=== PATIENT | male | born 1975 | race Two or more races ===

== ENCOUNTER 2016-12-02 23:28 | Emergency (ER) | payer OTHER ==
[2016-12-02] MEDS ORDERED: fentaNYL 100 MCG/2 ML INJ ONE (23:29)
[2016-12-02] MEDS ORDERED: PROPOFOL 200 MG/20 ML VIAL ONE (23:30)
[2016-12-02] MEDS ORDERED: NS 1,000 ML IV ONE (23:50)
--- NOTE | 2016-12-03 | CPEKG ---
Heart Rate: 84 RR Interval: 714 P-R Interval: 160 QRSD Interval: 102 QT Interval: 392 QTC Interval: 464 P [place]: 47 QRS [place]: 35 T Wave [place]: 20 EKG Severity - ABNORMAL ECG - EKG Impression: SINUS RHYTHM EKG Impression: BORDERLINE INFERIOR Q WAVES EKG Impression: NONSPECIFIC T ABNORMALITIES, ANTERIOR LEADS Electronically Signed By: Jo Cobian 03-Dec-2016 07:08:29
[2016-12-03 00:18] LABS: % IMMATURE GRANULYOCYTES 0.4 % (0.0-1.1); ABSOLUTE IMMATURE GRANULOCYTES 0.03 10^3/uL (0.00-0.10); ADD DIFF? NO; ADD MORPH? NO; ADD SCAN? NO; ATYPICAL LYMPHOCYTE FLAG 10 (0-99); FRAGMENT RBC FLAG 0 (0-99); HEMATOCRIT 46.1 % (40.0-51.0); HEMOGLOBIN 15.4 g/dL (13.7-17.5); LEFT SHIFT FLG 0 (0-99); LIPEMIA HEMOLYSIS FLAG 80 (0-99); MEAN CELL HEMOGLOBIN 28.9 pg (27.9-34.1); MEAN CELL HEMOGLOBIN CONCENTR. 33.4 g/dL (32.4-36.7); MEAN CELL VOLUME 86.7 fL (81.5-99.8); MEAN PLATELET VOLUME 11.1 fL (8.7-11.7); PLATELET CLUMPS FLAG 0 (0-99); PLATELET COUNT 280 10^3/uL (150-400); RED BLOOD CELL COUNT 5.32 10^6/uL (4.40-6.38)
[2016-12-03 00:27] LABS: ANION GAP 14 mEq/L (8-16); CALCIUM 9.6 mg/dL (8.5-10.4); CARBON DIOXIDE 24 mEq/l (22-31); CHLORIDE 102 mEq/L (97-110); CREATININE 0.9 mg/dL (0.7-1.3); GLOMERULAR FILTRATION RATE > 60; GLUCOSE 119 mg/dL (70-100); POTASSIUM 3.2 mEq/L (3.5-5.2); SODIUM 140 mEq/L (134-144)
--- NOTE | 2016-12-03 00:31 | EDPHY ---
H & P Stated Complaint: lightheaded dizzy at work Time Seen by Provider: 12/03/16 00:07 HPI/ROS: HPI The patient presents with dizziness which began at about 9:00 p.m. tonight while he was on a conference call for work. It started slowly and got progressively worse. He describes as lightheadedness. This was associated with a dry mouth and tingling in his arms and legs. He did not lose consciousness. He did not have any chest pain, palpitations, shortness of breath. He has never felt this way before. He did eat some brownies at work with a label on them that said THC. He has never tried marijuana before. He ate these at 7:00 p.m.. REVIEW OF SYSTEMS Constitutional: No fever, no chills. Eyes: No discharge. ENT: No sore throat. Cardiovascular: No chest pain, no palpitations. Respiratory: No cough, no shortness of breath. Gastrointestinal: No abdominal pain, no vomiting. Genitourinary: No hematuria. Musculoskeletal: No back pain. Skin: No rashes. Neurological: No headache. PMHx: Healthy Soc Hx: Lives at home with his no drug use PHYSICAL General Appearance: Alert, no distress Eyes: Pupils equal and round no pallor or injection ENT, Mouth: Mucous membranes moist Respiratory: There are no retractions, lungs are clear to auscultation Cardiovascular: Regular rate and rhythm Gastrointestinal: Abdomen is soft and non-tender, no masses, bowel sounds normal Neurological: A&O, moves all extremities, sensation intact to light touch throughout arms and legs Skin: Warm and dry, no rashes Musculoskeletal: Neck is supple non tender Extremities: symmetrical, full range of motion Psychiatric: Patient is oriented X 3, there is no agitation Source: Patient Exam Limitations: No limitations - Personal History Current Tetanus/Diphtheria Vaccine: Yes Current Tetanus Diphtheria and Acellular Pertussis (TDAP): Yes - Medical/Surgical History Hx Asthma: No Hx Chronic Respiratory Disease: No Hx Diabetes: No Hx Cardiac Disease: No Hx Renal Disease: No Hx Cirrhosis: No Hx Alcoholism: No Hx HIV/AIDS: No Hx Splenectomy or Spleen Trauma: No Other PMH: SLEEP APNEA - Social History Smoking Status: Never smoked Constitutional: Initial Vital Signs Temperature (C) 37 C 12/02/16 23:30 Heart Rate 90 12/02/16 23:30 Respiratory Rate 17 12/02/16 23:30 Blood Pressure 114/90 H 12/02/16 23:30 O2 Sat (%) 97 12/02/16 23:30 O2 Delivery Mode Room Air Allergies/Adverse Reactions: No Known Allergies Allergy (Unverified 11/04/13 21:48) Home Medications: Medication Instructions Recorded Hydroxycut 12/02/16 Medical Decision Making - Diagnostics EKG Interpretation: EKG: Complete interpretation has been separately recorded in the [employer] archive. Summary impression: T-wave inversions in lateral leads, no old for comparison Differential Diagnosis: This is a 41-year-old healthy man who presents from home with an episode of dizziness which started spontaneously while talking on the phone. Is associated with paresthesias of his arms and legs. On exam, he has no neurologic deficits and is generally well-appearing. He did use marijuana accidentally he believes. Differential diagnosis includes marijuana intoxication, arrhythmia, dehydration , less likely ACS. In the emergency room, patient was given a L of IV fluid for his dizziness and volume depletion. Basic labs were checked and were unremarkable. EKG showed no arrhythmia though he did have T-wave inversions, because of this troponin was checked and was negative. U tox was positive for marijuana, and I feel this is likely the cause of the patient's symptoms. I have discussed this with him. He will be discharged from the emergency room in good condition. - Data Points Laboratory Results: Laboratory Results 12/02/16 23:20 12/02/16 23:20 12/03/16 12/02/16 12/02/16 01:00 23:20 23:20 WBC 7.72 10^3/uL 10^3/uL (3.80-9.50) RBC 5.32 10^6/uL 10^6/uL (4.40-6.38) Hgb 15.4 g/dL g/dL (13.7-17.5) Hct 46.1 % % (40.0-51.0) MCV 86.7 fL fL (81.5-99.8) MCH 28.9 pg pg (27.9-34.1) MCHC 33.4 g/dL g/dL (32.4-36.7) RDW 14.0 % % (11.5-15.2) Plt Count 280 10^3/uL 10^3/uL (150-400) MPV 11.1 fL fL (8.7-11.7) Neut % (Auto) 32.6 % L % (39.3-74.2) Lymph % (Auto) 56.7 % H % (15.0-45.0) [place] % (Auto) 8.5 % % (4.5-13.0) Eos % (Auto) 1.4 % % (0.6-7.6) Baso % (Auto) 0.4 % % (0.3-1.7) Nucleat RBC Rel Count 0.0 % % (0.0-0.2) Absolute Neuts (auto) 2.51 10^3/uL 10^3/uL (1.70-6.50) Absolute Lymphs (auto) 4.38 10^3/uL H 10^3/uL (1.00-3.00) Absolute Monos (auto) 0.66 10^3/uL 10^3/uL (0.30-0.80) Absolute Eos (auto) 0.11 10^3/uL 10^3/uL (0.03-0.40) Absolute Basos (auto) 0.03 10^3/uL 10^3/uL (0.02-0.10) Absolute Nucleated RBC 0.00 10^3/uL 10^3/uL (0-0.01) Immature Gran % 0.4 % % (0.0-1.1) Immature Gran # 0.03 10^3/uL 10^3/uL (0.00-0.10) Sodium 140 mEq/L mEq/L (134-144) Potassium 3.2 mEq/L L mEq/L (3.5-5.2) Chloride 102 mEq/L mEq/L (97-110) Carbon Dioxide 24 mEq/l mEq/l (22-31) Anion Gap 14 mEq/L mEq/L (8-16) BUN 13 mg/dL mg/dL (7-23) Creatinine 0.9 mg/dL mg/dL (0.7-1.3) Estimated GFR > 60 Glucose 119 mg/dL H mg/dL (70-100) Calcium 9.6 mg/dL mg/dL (8.5-10.4) Troponin I < 0.012 ng/mL ng/mL (0-0.034) Urine Opiates Screen NON-NEGATIVE H (NEGATIVE) Urine Barbiturates NEGATIVE (NEGATIVE) Ur Phencyclidine Scrn NEGATIVE (NEGATIVE) Ur Amphetamine Screen NEGATIVE (NEGATIVE) U Benzodiazepines Scrn NEGATIVE (NEGATIVE) Urine Cocaine Screen NEGATIVE (NEGATIVE) U Marijuana (THC) Screen NON-NEGATIVE H (NEGATIVE) Medications Given: Discontinued Medications Sodium Chloride (Ns) 1,000 mls @ 0 mls/hr IV ONCE ONE PRN Reason: Wide Open Stop: 12/02/16 23:51 Last Admin: 12/03/16 00:00 Dose: 1,000 mls Departure - Departure Disposition: Home, Routine, Self-Care Clinical Impression: Dizziness Marijuana intoxication Qualifiers: Complication of substance-induced condition: with unspecified complication Qualified Code(s): F12.929 - Cannabis use, unspecified with intoxication, unspecified Condition: Good Instructions: Dizziness (ED) Additional Instructions: Please make sure to drink plenty of fluids. You should return to the emergency room if your worse in any way. Referrals: Darrell Santamaria MD [Primary Care Provider] - As per Instructions
[2016-12-03 00:38] LABS: TROPONIN I < 0.012 ng/mL (0-0.034)
[2016-12-03] MEDS ORDERED: PROPOFOL 200 MG/20 ML VIAL ONE (01:37)
[2016-12-03] MEDS ORDERED: fentaNYL 100 MCG/2 ML INJ ONE (01:37)
[2016-12-03 02:01] VITALS: BP 139/81; PULSE 71; RESP 18; TEMP 97.5; O2SAT 94
== END 2016-12-03 02:02 | disposition home or self-care (01) ==
LOC: EDUNIT#
DX: R42 Dizziness and giddiness (principal); F12.929 Cannabis use, unspecified with intoxication, unspecified
CPT/HCPCS: 80305; J2704; J3010